=== PATIENT | male | born 1955 | race Caucasian/White ===

== ENCOUNTER 2016-07-25 05:55 | Emergency (ER) | payer OTHER ==
[~2016-07-25] VITALS: Ht 167.6 cm; Wt 76.5 kg
[~2016-07-25 05:55] MED LIST: ACET325T33 PO; ASPI81TA3 PO; ATOR20TA65 PO; BENA5TAB2 PO; CARV3.1260 PO; FURO40TA4 PO; NIT4 SL; POTA-57 PO; SENN-117 PO; TAMS-14 PO
[2016-07-25 06:01] VITALS: Ht 167.6 cm; Wt 76.5 kg
[2016-07-25] MEDS ORDERED: FLUT9.9S NASAL (07:53)
[2016-07-25] MEDS ORDERED: LORA10CA PO (07:53)
[2016-07-25] MEDS ORDERED: SODI30SP2 NS (07:53)
[2016-07-25] MEDS ORDERED: DIPHENHYDRAMINE 50 MG INJ IM ONE (08:00)
--- NOTE | 2016-07-25 08:18 | ERD ---
ER Documentation Chief Complaint Date/Time DATE: 07/25/16 TIME: 08:16 Chief Complaint Nasal congestion X3 days HPI This is a 61-year-old male presenting to the emergency department complaining of nasal congestion for the past 3 days. Patient states that he has trouble breathing through his nose. Patient states that he has been using Afrin for the past 5 days and does not help him. Patient denies any fever, cough, chest pain. ROS All systems reviewed and are negative except as per history of present illness. Medications Home Meds Active Scripts Loratadine* (Claritin*) 10 Mg Capsule, 10 MG PO DAILY, #20 CAP Prov:ALDEN GUZMAN PA-C 07/25/16 Fluticasone Propionate (Flonase Allergy Relief) 9.9 Ml [place].susp, 1 SPRAY NASAL BID for 28 Days, #1 BOTTLE TO EACH NOSTRIL Prov:ALDEN GUZMAN PA-C 07/25/16 Sodium Chloride (Saline Nasal [place]) 30 Ml [place], 2 SPRAYS NS BID, #1 SPRAY Prov:ALDEN GUZMAN PA-C 07/25/16 Benazepril Hcl* (Benazepril Hcl*) 5 Mg Tablet, 5 MG PO DAILY for 30 Days, TAB Prov:NOE VASQUEZ 02/21/16 Atorvastatin Calcium (Atorvastatin Calcium) 20 Mg Tablet, 20 MG PO HS for 30 Days, TAB Prov:NOE VASQUEZ 02/21/16 Furosemide* (Furosemide*) 40 Mg Tablet, 40 MG PO QAM for 30 Days, TAB Prov:NOE VASQUEZ 02/21/16 Sennosides/Docusate Sodium (Senna-Time S Tablet) 1 Each Tablet, 1 TAB PO BID for 30 Days, TAB Prov:NOE VASQUEZ 02/21/16 Potassium Chloride* (Klor-Con*) 20 Meq Tabsr, 20 MEQ PO DAILY for 30 Days, TAB Prov:NOE VASQUEZ 02/21/16 Aspirin (Aspirin) 81 Mg Chew, 81 MG PO DAILY for 30 Days, TAB Prov:NOE VASQUEZ 02/21/16 Carvedilol* (Carvedilol*) 3.125 Mg Tablet, 3.125 MG PO BID for 30 Days, TAB Prov:NOE VASQUEZ 02/21/16 Acetaminophen* (Tylenol*) 325 Mg Tablet, 650 MG PO Q8 Y for PAIN AND OR ELEVATED TEMP for 14 Days, TAB Prov:NOE VASQUEZ 02/21/16 Reported Medications Tamsulosin Hcl* (Flomax*) 0.4 Mg Cap.er.24h, 0.4 MG PO DAILY, CAP 02/01/16 Nitroglycerin* (Nitrostat*) 0.4 Mg Tab.subl, 0.4 MG SL Q5MIN Y for CHEST PAIN, BOTTLE 02/01/16 Allergies Allergies: Coded Allergies: nitroglycerin (Verified Allergy, Severe, 02/14/16) DAUGHTER REPORT PT HAD NITRO PATCH BEFORE AND DEVELOPED "SHORTNESS OF BREATH, ANXIETY,AGITATED, AND VERY UNCOMFORTABLE, SEVERELY". Sulfa (Sulfonamide Antibiotics) (Verified Allergy, Unknown, hives, 02/07/16 ) PMhx/Soc History of Surgery: Yes (see notes) Anesthesia Reaction: No Hx Neurological Disorder: No Hx Respiratory Disorders: No Hx Cardiac Disorders: Yes (heart failure, HTN) Hx Psychiatric Problems: No Hx Miscellaneous Medical Probl: Yes (see notes) Hx Alcohol Use: No Hx Substance Use: No Hx Tobacco Use: No Physical Exam Vitals Vital Signs Date Time Temp Pulse Resp B/P Pulse Ox O2 Delivery O2 Flow Rate FiO2 07/25/16 06:01 96.7 107 24 133/99 99 Physical Exam GENERAL: well-developed/well-nourished, in no apparent distress, non-toxic appearing HEAD: NC/AT, no swelling noted in frontal or maxillary areas EARS: bilateral tympanic membrane is intact without erythema or effusion NARES: congested THROAT: oropharynx erythematous without exudates, no tonsil enlargement, post nasal drip EYES: Conjunctiva normal NECK: Supple, no lymphadenopathy PULM: CTA bilaterally, no rales, rhonchi, or wheezing heard CV: Normal S1S2, RRR, good capillary refill GI: Soft, non-distended, normal bowel sounds, non-tender BACK: No midline tenderness, no masses EXT No clubbing, cyanosis, or edema NEURO: Alert and Orientated SKIN: Intact, normal turgor PSYCH: Normal mood and mentation Results 24 hrs Current Medications Medications (Trade) Dose Ordered Sig/Jelani Route PRN Reason Start Time Stop Time Status Last Admin Dose Admin Diphenhydramine HCl (Benadryl) 50 mg ONCE ONCE IM 07/25/16 08:00 07/25/16 08:01 DC 07/25/16 08:13 Procedures/MDM This is a 61-year-old male presenting to the emergency department complaining of nasal congestion which is likely due to virus versus allergies and rebound congestion from Afrin use. On examination patient had severe nasal congestion. Low suspicion for bacterial sinusitis. I discussed with patient to discontinue aspirin how this is causing rebound congestion. Patient is suitable to follow-up with primary care physician for further action management. Prescription for Flonase, saline spray, and Claritin was provided. I discussed with patient to return to the ER for any worsening signs or symptoms. He agrees and understands plan Departure Diagnosis: Primary Impression: Allergic rhinitis Condition: Stable Patient Instructions: Allergic Rhinitis, Uri, Viral, No Abx (Adult) Referrals: [facility] Additional Instructions: Visite a [facility] jolley para un EXAMEN.Regrese a estas instalaciones si no se mejora jazmín esperbamos o jazmín le dijimos. [place] toda la medicina porter y jazmín se le indic. Regrese a estas instalaciones si no se mejora jazmín esperbamos o jazmín le dijimos. ALDEN GUZMAN PA-C Jul 25, 2016 08:18
== END 2016-07-25 08:35 | disposition home or self-care (01) ==
LOC: FTE 05:55
DX: J30.9 Allergic rhinitis, unspecified (principal); I10 Essential (primary) hypertension; Z79.82 Long term (current) use of aspirin
CPT/HCPCS: 96372; J1200; Z7502

== ENCOUNTER 2017-10-01 17:56 | Inpatient (IN) | END 2017-10-02 16:31 | disposition home or self-care (01) | DRG 247 ==